=== PATIENT | female | born 1985 | race Caucasian/White ===

== ENCOUNTER 2023-01-24 07:42 | Outpatient (CLI) | payer OTHER ==
[2023-01-24 08:15] LABS: #Basophils 0.1 10x3/uL (0.0-0.2); #Eosinphils 0.2 10x3/uL (0.0-0.5); #Monocytes 0.4 10x3/uL (0.0-1.1); #Neutrophils 3.1 10x3/uL (1.5-8.4); %Basophils 1.5 % (0.0-2.0); %Eosinophils 3.7 % (0.0-6.0); %Lymphocytes 29.5 % (18.0-47.0); %Monocytes 7.5 % (0.0-10.0); %Neutrophils 57.6 % (40.0-75.0); Hematocrit 39.9 % (34.9-44.5); Hemoglobin 13.5 g/dL (12.0-15.5); Mean Corpuscular HGB CONC 33.8 g/dL (32.0-36.0); Mean Corpuscular Hemoglobin 30.8 pg (27.0-33.0); Mean Corpuscular Volume 90.9 fl (81.6-98.3); Mean Platelet Volume 9.2 fl (7.4-10.4); Platelet Count 241 10x3/uL (150-450); RBC Distribution Width 11.9 % (11.5-14.5); Red Blood Cell (RBC) Count 4.39 10x6/uL (3.90-5.03); White Blood Cell (WBC) Count 5.4 10x3/uL (3.5-10.5)
[2023-01-24 08:39] LABS: ALT (SGPT) 15 U/L (8-55); AST (SGOT) 15 U/L (5-34); Albumin 4.5 g/dL (3.5-5.0); Alkaline Phosphatase 58 U/L (40-110); Anion Gap 15 mmol/L (10-20); BUN (Urea Nitrogen) 16 mg/dL (7.0-18.7); Bilirubin, Total 0.3 mg/dL (0.2-1.2); Calc. Creatinine Clearance 0 mL/min (70-130); Calcium 9.1 mg/dL (7.8-10.44); Carbon Dioxide 22 mmol/L (22-29); Cardiac Risk 3.8 (Less than 4.5); Chloride 105 mmol/L (98-107); Cholesterol 222 mg/dl (< 200 Desired); Estimated GFR 112; Globulin 2.9 g/dL (2.4-3.5); Glucose 96 mg/dL (70-105); HDL Cholesterol 58 mg/dL (>60 Neg Risk); LDL Cholesterol, Calculated 150 mg/dL; Potassium 4.1 mmol/L (3.5-5.1); Protein, Total 7.4 g/dL (6.0-8.3); Sodium 138 mmol/L (136-145); Triglycerides 69 mg/dL (Less than 150)
== END 2023-01-24 07:43 | disposition home or self-care (01) ==
LOC: CSHLAB 07:42
PROVIDERS: ATTEND Student in an Organized Health Care Education/Training Program
DX: Z00.00 Encounter for general adult medical examination without abnormal findings (principal)
CPT/HCPCS: 36415; 80053; 80061; 85025

== ENCOUNTER 2024-06-07 14:34 | Outpatient (CLI) | payer BC | END 2024-06-07 14:35 | disposition home or self-care (01) | LOC: CSHRAD 14:34 | PROVIDERS: ATTEND Student in an Organized Health Care Education/Training Program | DX: M54.50 Low back pain, unspecified (principal) | CPT/HCPCS: 72100 ==